=== PATIENT | female | born 1960 | race Caucasian/White ===

== ENCOUNTER 2022-02-03 21:54 | Emergency (ER) | payer BC ==
[2022-02-03 22:33] VITALS: BP 131/72; PULSE 63
[2022-02-03] MEDS ORDERED: valACYclovir 500 MG Tab PO ONE (22:52)
[2022-02-03] MEDS ORDERED: Gabapentin 300 MG Cap PO ONE (22:52)
== END 2022-02-03 23:15 | disposition home or self-care (01) ==
LOC: JD.ED 21:54
DX: B02.9 Zoster without complications (principal); E03.9 Hypothyroidism, unspecified; Z88.1 Allergy status to other antibiotic agents; Z79.899 Other long term (current) drug therapy
CPT/HCPCS: 99282; A9270; 99283

== ENCOUNTER 2024-04-13 01:53 | Emergency (ER) | payer BC ==
[2024-04-13 02:41] VITALS: BP 171/85; PULSE 72
[2024-04-13] MEDS: Sodium Chloride 0.9% 1,000 ML IV ONE (02:53)
[2024-04-13] MEDS: Ketorolac 15 MG/ML SDV IVPUSH ONE (03:10)
[2024-04-13 03:11] LABS: BASOPHILS ABSOLUTE AUTO 0.1 K/mm3 (0.0-0.2); BASOPHILS PERCENT AUTO 0.9 % (0.0-1.0); EOSINOPHILS ABSOLUTE AUTO 0.4 K/mm3 (0.0-0.4); EOSINOPHILS PERCENT AUTO 5.8 % (0.0-6.0); HEMOGLOBIN 11.9 gm/dl (12.0-16.0); IMMATURE GRAN ABSOLUTE AUTO 0.01 K/mm3 (0.00-0.05); IMMATURE GRAN PERCENT AUTO 0.1 % (0.0-0.4); LYMPHOCYTES ABSOLUTE AUTO 2.1 K/mm3 (1.0-4.8); LYMPHOCYTES PERCENT AUTO 31.3 % (24.0-44.0); MEAN CORPUSCULAR HEMOGLOBIN 27.3 pg (28.0-32.0); MEAN CORPUSCULAR HGB CONC 32.2 g/dl (32.0-36.0); MEAN CORPUSCULAR VOLUME 84.9 fl (83.0-99.0); MEAN PLATELET VOLUME 9.6 fl (9.4-12.3); MONOCYTES ABSOLUTE AUTO 0.5 K/mm3 (0.0-0.8); NEUTROPHILS ABSOLUTE AUTO 3.7 K/mm3 (1.8-7.7); NEUTROPHILS PERCENT AUTO 54.9 % (41.0-71.0); PLATELET COUNT,PLT 251 K/mm3 (150-400); RED BLOOD CELL COUNT 4.36 M/mm3 (4.10-5.30); WHITE BLOOD CELL COUNT,WBC 6.71 K/mm3 (3.9-11.3)
[2024-04-13 03:58] LABS: A/G RATIO 0.9 (1-2); ALANINE AMINOTRANSFERASE,ALT 27 U/L (14-59); ALBUMIN 3.3 g/dl (3.4-5.0); ALKALINE PHOSPHATASE 87 U/L (46-116); ASPARTATE AMNIOTRANSFERASE,AST 17 U/L (15-37); BILIRUBIN TOTAL 0.3 mg/dL (0.2-1.0); BLOOD UREA NITROGEN,BUN 23 mg/dL (7-18); CALCIUM 8.8 mg/dL (8.5-10.1); CARBON DIOXIDE,CO2 25 mEq/L (21-32); ESTIMATED GFR 63 mL/min (>60); GLUCOSE RANDOM 96 mg/dL (70-99); PROTEIN TOTAL,TP 6.8 g/dl (6.4-8.2)
[2024-04-13 04:09] LABS: ANION GAP 14.9 (5-15); CHLORIDE,CL 107 mEq/L (98-107); POTASSIUM,K 3.9 mEq/L (3.5-5.1); SODIUM,NA 143 mEq/L (136-145)
[2024-04-13 04:12] LABS: TROPONIN I HIGH SENSITIVITY < 4 pg/mL (<=51)
== END 2024-04-13 05:04 | disposition home or self-care (01) ==
LOC: JD.ED 01:53
DX: M62.830 Muscle spasm of back (principal); Z88.8 Allergy status to other drugs, medicaments and biological substances; Z88.1 Allergy status to other antibiotic agents; K21.9 Gastro-esophageal reflux disease without esophagitis; E03.9 Hypothyroidism, unspecified; E66.9 Obesity, unspecified; Z90.710 Acquired absence of both cervix and uterus; Z79.899 Other long term (current) drug therapy; Z68.37 Body mass index [BMI] 37.0-37.9, adult
CPT/HCPCS: 36415; 71045; 80053; 84484; 85025; 93005; 96361; 96374; 99284; J1885; J7030; 93010